=== PATIENT | male | born 1950 | race Caucasian/White ===

== ENCOUNTER → 2023-10-23 10:48 | Outpatient (REF) | payer OTHER, SELFPAY | LOC: HWRAD 10:48 | PROVIDERS: ATTENDING PHYSICIAN Nurse Practitioner Adult Health; FAMILY PHYSICIAN Family Medicine | DX: Z87.891 Personal history of nicotine dependence (principal) | CPT/HCPCS: 71271 ==

== ENCOUNTER 2024-03-20 21:08 | Emergency (ER) | payer OTHER, SELFPAY ==
[2024-03-20 21:10] VITALS: BP 179/81
[2024-03-20 21:40] LABS: COVID-19 Antigen Negative (Negative)
--- NOTE | 2024-03-20 21:44 | ED.GENMED ---
History of Present Illness
<Gisselle Castellon DO, Resident - Last Filed: 03/22/24 16:01>
General
Chief Complaint: Breathing Problem
Source: patient
Time Seen by Provider: 03/20/24 21:18
History of Present Illness
History of Present Illness:
Patient is a 74-year-old male presenting to the ED with intermittent shortness of breath for last 4 days when ambulating, diarrhea on Monday and Monday, low-grade fevers, lower abdominal pain, headaches and neck pain. He states that sometimes when
he gets a headache it makes his vision go blurry. He states that he saw his primary care doctor who told him to stop taking Tylenol because he looked 'yellow'. He has a history back and neck pain.
Past History
<Gisselle Castellon DO, Resident - Last Filed: 03/22/24 16:01>
Past History
ED Past Medical History: CAD, COPD, HTN, Hypercholesterolemia, NIDDM and Psychiatric
ED Past Surgical History: Cardiac, Orthopedic and Tonsilectomy
Social History
Tobacco: Smoker
Alcohol: None
Drug: None
Personal:
Living: with family
Review of Systems
<Gisselle Castellon DO, Resident - Last Filed: 03/22/24 16:01>
Review of Systems
Constitutional: Reports fever
EENT: Reports no symptoms
Respiratory: Reports trouble breathing
Cardiac: Reports no symptoms
ABD/GI: Reports nausea and diarrhea
: Reports no symptoms
Musculoskeletal: Reports muscle pain, edema, neck pain and back pain
Neurological: Reports dizzy and headache
Endocrine: Reports no symptoms
Hematologic/Lymphatic: Reports no symptoms
Psychiatric: Reports no symptoms
Phy Exam
<Gisselle Castellon DO, Resident - Last Filed: 03/22/24 16:01>
General Physical Exam
General Presentation: well appearing and no apparent distress
General age: appears stated age
General Skin: warm and feels hot
General Habitus: obese
General Mental: alert
General Hydration: appears well hydrated
Cardiovascular Exam
Cardiovascular Exam: regular rate/rhythm, no edema, no gallop, no JVD, no murmur and normal peripheral pulses
Pulmonary Exam
Pulmonary Exam: no respiratory distress, no rales, chest non tender, no rhonchi, no stridor, no cough and other (wheezing)
Gastrointestinal Exam
Gastrointestinal Exam: normal bowel sounds, non tender, soft, no pulsatile mass and distended
Musculoskeletal Exam
Musculoskeletal Exam: full ROM and edema
Scores
<Gisselle Castellon DO, Resident - Last Filed: 03/22/24 16:01>
Heart Failure Risk
Heart Failure Risk Score: Not Applicable
Course
<Gisselle Castellon DO, Resident - Last Filed: 03/22/24 16:01>
Orders/Labs/Results
Orders:
Orders
03/20/24
Electrocardiogram (*1) Stat
Reason for Study: Chest Pain
03/20/24 21:15
CR Chest - 2 Views Urgent
Comment:
Reason For Exam: fever
03/20/24 21:19
COVID-19 Antigen Urgent
Source: Nasal Swab
03/20/24 21:53
Ipratropium/Albuterol Sulfate [Duoneb] 3 ml INH R NOW STA
03/20/24 21:54
EKG- Treatment ONCE
03/20/24 22:01
Acetaminophen [Tylenol] 650 mg PO NOW STA
03/20/24 22:18
BNP [NT-proBNP] Urgent
Complete Blood Count/With Diff Urgent
Comprehensive Metabolic Panel Urgent
Urinalysis Urgent
Date Specimen was Collected: 03/20/24
Time Specimen was Collected: 21:50
Urine Microscopic Urgent
Date Specimen was Collected: 03/20/24
Time Specimen was Collected: 21:50
03/20/24 22:44
Doxycycline [Vibramycin] 100 mg PO NOW STA
Abnormal Lab Results
03/20/24
22:18
RBC 3.86 L 10^6/uL
(4.70-6.10)
Hgb 11.9 L g/dL
(13.0-18.0)
Hct 33.3 L %
(39.0-52.0)
RDW 14.9 H %
(11.5-14.5)
Absolute Neuts (auto) 7.2 H 10^3/uL
(1.4-6.5)
Absolute Lymphs (auto) 0.7 L 10^3/uL
(1.2-3.4)
Absolute Monos (auto) 1.2 H 10^3/uL
(0.1-0.6)
Neutrophils % 78.6 H %
(42.2-75.2)
Lymphocytes % 7.3 L %
(20.5-51.1)
Monocytes % 12.5 H %
(1.7-9.3)
Sodium 134 L mmol/L
(135-145)
BUN 23 H mg/dl
(9-20)
Creatinine 1.4 H mg/dL
(0.7-1.3)
Glucose 182 H mg/dl
(70-99)
Total Protein 5.8 L g/dl
(6.3-8.2)
Albumin 3.4 L g/dl
(3.5-5.0)
Urine Ketones Trace A
(Negative)
Urine Occult Blood 3+ A
(Negative)
Urine RBC 21-25 A /HPF
(0-2)
Urine Bacteria Few A
(Negative)
Urine Glucose 3+ A
(Negative)
03/20/24 22:18
03/20/24 22:18
Vital Signs
Initial and Last Documented VS:
Initial Vital Signs
Temp Pulse Resp BP Pulse Ox
101.0 F H 102 20 179/81 94
03/20/24 21:10 03/20/24 21:10 03/20/24 21:10 03/20/24 21:10 03/20/24 21:10
Last Documented Vital Signs
Temp Pulse Resp BP Pulse Ox
102.3 F H 91 20 179/81 95
03/20/24 23:15 03/20/24 23:15 03/20/24 23:15 03/20/24 21:10 03/20/24 23:15
<Lavell Cole DO - Last Filed: 03/20/24 22:59>
Orders/Labs/Results
Orders:
Orders
03/20/24
Electrocardiogram (*1) Stat
Reason for Study: Chest Pain
03/20/24 21:15
CR Chest - 2 Views Urgent
Comment:
Reason For Exam: fever
03/20/24 21:19
COVID-19 Antigen Urgent
Source: Nasal Swab
03/20/24 21:53
Ipratropium/Albuterol Sulfate [Duoneb] 3 ml INH R NOW STA
03/20/24 21:54
EKG- Treatment ONCE
03/20/24 22:01
Acetaminophen [Tylenol] 650 mg PO NOW STA
03/20/24 22:18
BNP [NT-proBNP] Urgent
Complete Blood Count/With Diff Urgent
Comprehensive Metabolic Panel Urgent
Urinalysis Urgent
Date Specimen was Collected: 03/20/24
Time Specimen was Collected: 21:50
Urine Microscopic Urgent
Date Specimen was Collected: 03/20/24
Time Specimen was Collected: 21:50
03/20/24 22:44
Doxycycline [Vibramycin] 100 mg PO NOW STA
Abnormal Lab Results
03/20/24
22:18
RBC 3.86 L 10^6/uL
(4.70-6.10)
Hgb 11.9 L g/dL
(13.0-18.0)
Hct 33.3 L %
(39.0-52.0)
RDW 14.9 H %
(11.5-14.5)
Absolute Neuts (auto) 7.2 H 10^3/uL
(1.4-6.5)
Absolute Lymphs (auto) 0.7 L 10^3/uL
(1.2-3.4)
Absolute Monos (auto) 1.2 H 10^3/uL
(0.1-0.6)
Neutrophils % 78.6 H %
(42.2-75.2)
Lymphocytes % 7.3 L %
(20.5-51.1)
Monocytes % 12.5 H %
(1.7-9.3)
Sodium 134 L mmol/L
(135-145)
BUN 23 H mg/dl
(9-20)
Creatinine 1.4 H mg/dL
(0.7-1.3)
Glucose 182 H mg/dl
(70-99)
Total Protein 5.8 L g/dl
(6.3-8.2)
Albumin 3.4 L g/dl
(3.5-5.0)
Urine Ketones Trace A
(Negative)
Urine Occult Blood 3+ A
(Negative)
Urine RBC 21-25 A /HPF
(0-2)
Urine Bacteria Few A
(Negative)
Urine Glucose 3+ A
(Negative)
03/20/24 22:18
03/20/24 22:18
Vital Signs
Initial and Last Documented VS:
Initial Vital Signs
Temp Pulse Resp BP Pulse Ox
101.0 F H 102 20 179/81 94
03/20/24 21:10 03/20/24 21:10 03/20/24 21:10 03/20/24 21:10 03/20/24 21:10
Last Documented Vital Signs
Temp Pulse Resp BP Pulse Ox
102.3 F H 91 20 179/81 95
03/20/24 23:15 03/20/24 23:15 03/20/24 23:15 03/20/24 21:10 03/20/24 23:15
<Gisselle Castellon DO, Resident - Last Filed: 03/22/24 16:01>
MDM/Problems Addressed
Differential Diagnosis Includes:
shortness of breath
MDM/Problems Addressed:
Patient is 74-year-old male presenting to the ED with shortness of breath. COVID test negative. Chest x-ray negative. Patient given DuoNebs and Tylenol in ED. patient states shortness of breath was improved after treatment. Lungs sound clear
after treatment. Blood work negative. Chemistry shows elevated creatinine at 1.4. Last creatinine in April was 0.9. Glucose elevated at 182. Urine unremarkable. BNP negative. Patient counseled on following up outpatient with primary care
physician. Patient to be discharged with prescription for doxycycline for 7 days.
Chronic conditions affecting care:
NA
Acute Exacerbation and/or Progression of Chronic Illness:
NA
<Gisselle Castellon DO, Resident - Last Filed: 03/22/24 16:01>
*Radiology
Radiology exam reviewed: radiology read reviewed (Chest x-ray negative.)
*Pulse Oximetry
Patient hypoxic: no
*EKG
Interpreted by ED Provider?: Yes
EKG Intrepretation Date: 03/20/24
Interpretation: normal
Comparison EKG: no comparison EKG present
Heart Rate: 92
Rate: normal
Rhythm: sinus
Satin: normal axis
Interval: normal interval
QRS Pattern: normal QRS
Ischemia: no ischemia
*Homemaker Companion Interpretation
Rate: Homemaker Companion- N/A
*Critical Care Note
Total Time (30-74mins, 75-104mins- exclusive of procedures): Not Applicable
ED Attending Note
<Gisselle Castellon DO, Resident - Last Filed: 03/22/24 16:01>
-
Portions of this chart may have been created with voice recognition software.� Occasional wrong word or��sound alike� substitutions may have occurred due to the inherent limitations of voice recognition software.
<Lavell Cole DO - Last Filed: 03/20/24 22:59>
ED Attending Note
Patient seen and examined by attending physician: Yes
I performed a history and physical exam of patient and discussed management with resident, I reviewed resident's note and agree with documented findings and plan of care.: Yes
ED Attending Note:
I agree with Gisselle's note.
Pt with sob, body aches, mild cough.
General: Awake, Alert, Oriented X3. No acute distress. High BMI
Vitals: unremarkable
Head: Atraumatic
Eyes: Pupils equal, EOMI
Throat: Airway intact, no exudates
Neck: Trachea midline
Lungs: Expiratory wheeze
Heart: Regular rate, no murmurs
Abd: Soft, Nontender, No pulsatile mass
Neuro: Nonfocal
Skin: Warm, dry, no rash
Extremities: pulses equal b/l, no edema
Patient presents with some shortness of breath, fever, body aches. COVID-negative. Labs show normal white blood cell count. Chemistries remarkable for mild elevation in his creatinine from what it was last measured here. This can be followed up
as an outpatient. Chest x-ray shows no acute disease. Urine does not show any signs of infection though he does have some RBCs. Also outpatient follow-up for this. Patient felt better after a DuoNeb here. Will he does have a nebulizer at home.
Will discharge him on doxycycline for potential acute bronchitis. Pt instructed on need to f/u on hematuria.
Discharge Plan
Departure
Patient Disposition: Home (Routine Discharge)
Date of Disposition: 03/20/24
Time of Disposition: 22:49
Patient with high blood pressure during this ER visit?: Yes
Condition: Good
Discharge Problem:
Mild shortness of breath
Instructions: Acute Bronchitis, Adult (DC), Shortness of Breath (Dyspnea) (DC), BLOOD PRESSURE
Prescriptions:
New
doxycycline hyclate 100 mg capsule
100 mg PO BID Qty: 14 0RF
albuterol sulfate 0.63 mg/3 mL solution for nebulization
0.63 mg inhalation QID PRN (Reason: shortness of breath or wheezing) Qty: 90 0RF
No Action
paroxetine HCl [Paxil CR] 25 MG tablet extended release 24 hr
25 mg PO DAILY
amlodipine [Norvasc] 2.5 MG tablet
2.5 mg PO DAILY
amlodipine [Norvasc] 5 MG tablet
5 mg PO QPM
metoprolol succinate 25 MG tablet extended release 24 hr
25 mg PO DAILY Qty: 90 5RF
aspirin 81 MG tablet,delayed release (DR/EC)
81 mg PO DAILY Qty: 0 0RF
multivitamin Tablet
1 tab PO DAILY
Trelegy Ellipta 100-62.5-25 mcg Blister With Device
1 inh INHALATION R DAILY
atorvastatin [Lipitor] 40 mg Tablet
40 mg PO DAILY
acetaminophen [Tylenol] 325 mg Tablet
650 mg PO Q4HPRN PRN (Reason: mild pain)
fexofenadine 60 mg Tablet
60 mg PO DAILY
cholecalciferol (vitamin D3) [Vitamin D3] 25 mcg (1,000 unit) Capsule
25 mcg PO DAILY
alfuzosin 10 mg Tablet Extended Release 24 Hr
10 mg PO DAILY
Jardiance 10 mg Tablet
10 mg PO DAILY
isosorbide mononitrate 30 MG tablet extended release 24 hr
30 mg PO DAILY
Eliquis 5 MG tablet
5 mg PO BID
potassium chloride 20 mEq Tablet,Er Particles/Crystals
20 meq PO DAILY Qty: 90 3RF
losartan 100 mg Tablet
100 mg PO DAILY Qty: 30 0RF
nitroglycerin 0.4 mg Tablet, Sublingual
0.4 mg SUBLINGUAL Q5M PRN (Reason: chest pain)
ezetimibe [Zetia] 10 mg Tablet
10 mg PO DAILY
guaifenesin [Mucinex] 600 mg Tablet Extended Release 12hr
600 mg PO DAILY
Trelegy Ellipta 100-62.5-25 mcg Blister With Device
1 inh INHALATION DAILY
Activity Restrictions/Additional Instructions:
please follow with primary care for outpatient workup of symptoms.
Interventions
Interventions:
*Risk Screen - Suicide Last Done: 03/20/24 21:10
*General Assessment Last Done: 03/20/24 21:10
*Neglect/Abuse Screening Last Done: 03/20/24 21:10
ED- Fall Risk Assessment Last Done: 03/20/24 22:33
*ED COVID-19 Vaccine History Last Done: 03/20/24 23:15
*Nursing Disposition Last Done: 03/20/24 23:15
ED- Cardiac Assessment Last Done: 03/20/24 22:33
ED- Pulmonary Assessment Last Done: 03/20/24 22:33
Discharge Date and Time
Discharge Date/Time: 03/20/24 23:16
Print Language: GUINEAN
[2024-03-20] MEDS: DUONEB 3 ML INH (22:17)
[2024-03-20] MEDS: TYLENOL 650 MG PO (22:23)
[2024-03-20 22:26] LABS: % Basophils 0.2 % (0-2); % Eosinophils 1.2 % (0-6); % Immature Granulocytes 0.2 % (0-0.5); % Lymphocytes 7.3 % (20.5-51.1); % Monocytes 12.5 % (1.7-9.3); % Neutrophils 78.6 % (42.2-75.2); Absolute Eosinophils 0.1 10^3/uL (0-0.7); Absolute Lymphocytes 0.7 10^3/uL (1.2-3.4); Absolute Monocytes 1.2 10^3/uL (0.1-0.6); Absolute Neutrophils 7.2 10^3/uL (1.4-6.5); Hematocrit 33.3 % (39.0-52.0); Hemoglobin 11.9 g/dL (13.0-18.0); Mean Corp Hgb Conc. 35.7 g/dL (33.0-37.0); Mean Corpuscular Hgb 30.8 pg (27.0-31.0); Mean Corpuscular Volume 86.3 fL (80.0-94.0); Mean Platelet Volume 9.3 fL (7.4-10.4); Nucleated Red Blood Cells % 0 % (-); Platelet Count 260 10^3/uL (130-400); Red Blood Cell Count 3.86 10^6/uL (4.70-6.10); Red Cell Dist. Width 14.9 % (11.5-14.5); Urine Albumin Trace (Neg - Trace); Urine Bilirubin Negative (Negative); Urine Character Clear (Clear); Urine Color Yellow; Urine Glucose 3+ (Negative); Urine Ketone Trace (Negative); Urine Leukocyte Negative (Negative); Urine Nitrite Negative (Negative); Urine Occult Blood 3+ (Negative); Urine Urobilinogen Negative (Neg - 1+); White Blood Cell Count 9.2 10^3/uL (4.8-10.8)
[2024-03-20 22:33] VITALS: BMI 37.4
[2024-03-20 22:34] LABS: Urine Squamous Cell 0-2 /LPF (Few)
[2024-03-20 22:35] LABS: Urine Bacteria Few (Negative); Urine Red Blood Cell 21-25 /HPF (0-2); Urine Sperm Seen; Urine White Cell 0-2 /HPF (0-5)
[2024-03-20 22:39] LABS: ALT (SGPT) 46 U/L (0-50); AST (SGOT) 40 U/L (17-59); Albumin 3.4 g/dl (3.5-5.0); Alkaline Phosphatase 80 U/L (38-126); Blood Urea Nitrogen 23 mg/dl (9-20); Calcium 8.6 mg/dl (8.4-10.2); Carbon Dioxide 24 mmol/L (22-30); Chloride 103 mmol/L (98-107); Estimated Creatinine Clearance 50 ml/min; Glucose 182 mg/dl (70-99); Sodium 134 mmol/L (135-145); Total Bilirubin 0.6 mg/dl (0.2-1.3); Total Protein 5.8 g/dl (6.3-8.2); eGFR 53.07
[2024-03-20 22:47] LABS: NT-proBNP 1120 pg/ml
[2024-03-20] MEDS: VIBRAMYCIN 100 MG PO (23:02)
== END 2024-03-20 23:16 | disposition home or self-care (01) ==
LOC: EMR 21:08
PROVIDERS: Emergency Medicine; EMERGENCY PHYSICIAN Emergency Medicine; FAMILY PHYSICIAN Family Medicine
DX: R06.02 Shortness of breath (principal); R03.0 Elevated blood-pressure reading, without diagnosis of hypertension
CPT/HCPCS: 99285; 94640; 71046; 80053; 81003; 81015; 83880; 85025; 87811; 93005

== ENCOUNTER → 2024-04-05 14:03 | Outpatient (REF) | payer OTHER, SELFPAY | LOC: HWRAD 14:03 | PROVIDERS: ATTENDING PHYSICIAN Nurse Practitioner Adult Health; FAMILY PHYSICIAN Family Medicine | DX: R91.1 Solitary pulmonary nodule (principal) | CPT/HCPCS: 71250 ==

== ENCOUNTER → 2024-05-31 13:39 | Outpatient (REF) | payer OTHER, SELFPAY | LOC: PAVMRI 13:39 | PROVIDERS: ATTENDING PHYSICIAN Physical Medicine & Rehabilitation Pain Medicine; FAMILY PHYSICIAN Family Medicine | DX: M54.16 Radiculopathy, lumbar region (principal) | CPT/HCPCS: 72158; A9575 ==

== ENCOUNTER → 2025-04-23 12:40 | Outpatient (REF) | payer OTHER, SELFPAY | LOC: HWRAD 12:40 | PROVIDERS: ATTENDING PHYSICIAN Nurse Practitioner Adult Health; FAMILY PHYSICIAN Family Medicine | DX: Z87.891 Personal history of nicotine dependence (principal) | CPT/HCPCS: 71250 ==